=== PATIENT | female | born 1995 | race African-American/Black ===

== ENCOUNTER 2019-04-07 18:43 | Emergency (ER) | payer MEDICAID ==
[~2019-04-07] VITALS: Ht 165.1 cm; Wt 74.8 kg
[2019-04-07 18:58] VITALS: BP 136/74
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
[2019-04-07] MEDS ORDERED: IBUP-1581 PO (19:20)
[2019-04-07] MEDS ORDERED: IBUPROFEN 400 MG TABLET. PO ONE (19:30)
--- NOTE | 2019-04-07 20:01 | RAD ---
Three-view right shoulder dated 04/07/2019. No comparison available. CLINICAL INDICATION: Pain after injury. FINDINGS: 3 views right shoulder show normal bony alignment. No displaced fracture. No acute osseous or articular abnormality. Mild widening at the AC joint, nonspecific. IMPRESSION: 1. No acute bony abnormality. 2. Mild widening at the AC joint, nonspecific but possibly related to low-grade AC separation injury. Correlate clinically. Electronically signed by: David Edmond MD (04/07/2019 7:58 PM) [facility]
== END 2019-04-07 19:30 | disposition home or self-care (01) ==
LOC: ER 18:43
DX: M25.511 Pain in right shoulder (principal); X50.9XXA Other and unspecified overexertion or strenuous movements or postures, initial encounter; Y93.01 Activity, walking, marching and hiking; Y92.89 Other specified places as the place of occurrence of the external cause; Y99.8 Other external cause status
CPT/HCPCS: 73030; 99284

== ENCOUNTER 2019-06-12 16:39 | Emergency (ER) | payer MEDICAID ==
[~2019-06-12] VITALS: Ht 167.6 cm; Wt 73.9 kg
[~2019-06-12 16:39] MED LIST: IBUP-1581 PO
--- NOTE | 2019-06-12 17:22 | PHYS DOC ---
Past Medical History Past Medical History: No Pertinent History (CHACHA PAGE NP) Past Surgical History: No Surgical History, (CHACHA PAGE NP) Alcohol Use: None Drug Use: None (CHACHA PAGE NP) Adult General Chief Complaint Chief Complaint: WOUND CHECK HPI HPI Patient is a 23 year old female that underwent a on January 26, 2019. 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 Denies any other complaints at this time. (CHACHA PAGE NP) Review of Systems Review of Systems Constitutional: Denies fever or chills Eyes: Denies change in visual acuity, redness, or eye pain HENT: Denies nasal congestion or sore throat Respiratory: Denies cough or shortness of breath Cardiovascular: No additional information not addressed in HPI GI: Denies abdominal pain, nausea, vomiting, bloating, bloody stools or diarrhea : Denies dysuria or hematuria. Denies vaginal bleeding/discharge. Musculoskeletal: Denies back pain or joint pain Integument: Denies rash or skin lesions. Complains of paresthesia over incisional site. Denies bleeding/drainage/erythema/tenderness at site. Neurologic: Denies headache, focal weakness or sensory changes Endocrine: Denies polyuria or polydipsia All other systems were reviewed and found to be within normal limits, except as documented in this note. (CHACHA PAGE NP) Allergies Allergies Allergies Coded Allergies Type Severity Reaction Last Updated Verified No Known Drug Allergies 04/07/19 No (SHARRON ALCALA DO) Physical Exam Physical Exam Constitutional: Well developed, well nourished, no acute distress, non-toxic appearance. HENT: Normocephalic, atraumatic, bilateral external ears normal, oropharynx moist, no oral exudates, nose normal. Eyes: PERRLA, EOMI, conjunctiva normal, no discharge. Neck: Normal range of motion, no tenderness, supple, no stridor. Cardiovascular:Heart rate regular rhythm, no murmur Lungs & Thorax: Bilateral breath sounds clear to auscultation Abdomen: Bowel sounds normal, soft, no tenderness, no masses, no pulsatile mass es. Skin: Warm, dry, no erythema, no rash. Well-healed transverse suprapubic incision noted without edema/erythema/drainage/streaks noted. Back: No tenderness, no CVA tenderness. Extremities: No tenderness, no cyanosis, no clubbing, ROM intact, no edema. Neurologic: Alert and oriented X 3, normal motor function, normal sensory function, no focal deficits noted. Psychologic: Affect normal, judgement normal, mood normal. (CHACHA PAGE NP) Current Patient Data Vital Signs Vital Signs Date Time Temp Pulse Resp B/P (MAP) Pulse Ox O2 Delivery O2 Flow Rate FiO2 06/12/19 17:25 97.9 79 18 141/81 (101) 98 Room Air 97.9 (SHARRON ALCALA DO) EKG EKG [] (CHACHA PAGE NP) Radiology/Procedures Radiology/Procedures [] (CHACHA PAGE NP) Course & Med Decision Making Course & Med Decision Making Well-healed scar present over patient's suprapubic region. Patient re- assured that numbness is WNL for 4months post-op and that paresthesia at site can last a long time due to nerves being severed during surgery. Advised patient to follow up with PCP or BOX STORAGE WORKER if further concerns. (CHACHA PAGE NP) Dragon Disclaimer Dragon Disclaimer This electronic medical record was generated, in whole or in part, using a voice recognition dictation system. (CHACHA PAGE NP) Departure Departure Impression: Primary Impression: Physically well but worried Disposition: 01 HOME, SELF-CARE Condition: STABLE Referrals: NO PCP (PCP) Attending Signature Attending Signature I have reviewed the PA/EQUIPMENT MAINTENANCE SUPERVISOR's note and plan of care. I was available for consultation as needed during the patient's visit in the emergency department. I agree with the clinical impression, plan, and disposition. (SHARRON ALCALA DO) CHACHA PAGE NP Jun 12, 2019 17:22 SHARRON ALCALA DO Jun 14, 2019 13:18
[2019-06-12 17:25] VITALS: BP 141/81
== END 2019-06-12 17:45 | disposition home or self-care (01) ==
LOC: ER 16:39
DX: R20.0 Anesthesia of skin (principal)
CPT/HCPCS: 99281

== ENCOUNTER 2021-05-10 00:36 | Emergency (ER) | payer MEDICAID ==
[~2021-05-10] VITALS: Ht 167.6 cm; Wt 63.6 kg
[2021-05-10] MEDS ORDERED: ACETAMINOPHEN 500 MG TABLET PO ONE (01:00)
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
--- NOTE | 2021-05-10 02:30 | RAD ---
EXAMINATION: CT MAXILLOFACIAL WITHOUT CONTRAST, CT LUMBAR SPINE WO, CT THORACIC SPINE WO CLINICAL HISTORY: Trauma TECHNIQUE: Spiral high resolution axial unenhanced images were obtained through the facial bones with sagittal a nd coronal planar reconstructions. CT of the thoracic spine without IV contrast. Spiral, high resolution axial images were obtained from the cervicothoracic junction to the thoracolumbar junction with sagittal and coronal planar reconstr uctions. CT of the lumbar spine without IV contrast. Spiral, high resolution axial images were obtained from t he thoracolumbar junction to the lumbosacral junction with sagittal and coronal planar reconstruction s. CT Dose Reduction Employed: One or more of the following individualized dose reduction techniques wer e utilized for this examination: 1. Automated exposure control 2. Adjustment of the mA and/or kV ac cording to patient size 3. Use of iterative reconstruction technique. COMPARISON: None FINDINGS: MAXILLOFACIAL: Soft Tissues: Minimal right malar subcutaneous edema. Facial Bones: Minimally depressed right nasal bone fracture without overlying soft tissue swelling, p ossibly nonacute. Orbits: No evidence of acute orbital fracture. Globes are intact. Soft tissue planes of the orbits ma intained. Paranasal Sinuses: No significant sinus disease. T-SPINE: Alignment: Normal anatomic alignment. Osseous Structures: No evidence of acute fracture. Degenerative Changes: No significant degenerative changes. Paraspinal Soft Tissues: Paraspinal soft tissues unremarkable. L-SPINE: Alignment: Normal anatomic alignment. Osseous Structures: No evidence of acute fracture or spondylolisthesis. SI joints maintained. Degenerative Changes: Mild posterior disc space narrowing with small disc protrusion at L5-S1. Paraspinal Soft Tissues: Paraspinal soft tissues unremarkable. IMPRESSION: MAXILLOFACIAL: Minimally depressed right nasal bone fracture as described, possibly nonacute. Correlate clinically. Minimal right malar subcutaneous edema. T-SPINE: No evidence of acute osseous abnormality involving the thoracic spine. L-SPINE: No evidence of acute osseous abnormality involving the lumbar spine. Electronically signed by: Isidro El DO (05/10/2021 2:27 AM) [facility]
[2021-05-10 04:47] VITALS: BP 127/81
== END 2021-05-10 07:32 | disposition home or self-care (01) ==
LOC: ER 00:36
DX: S02.2XXA Fracture of nasal bones, initial encounter for closed fracture (principal); S30.810A Abrasion of lower back and pelvis, initial encounter; F17.200 Nicotine dependence, unspecified, uncomplicated; Y08.89XA Assault by other specified means, initial encounter; Y93.89 Activity, other specified; Y92.89 Other specified places as the place of occurrence of the external cause; Y99.8 Other external cause status
CPT/HCPCS: 70486; 72128; 72131; 81025; 99285-25